=== PATIENT | male | born 1935 | race Caucasian/White ===

== ENCOUNTER 2021-02-02 00:12 | Inpatient (IN) | payer MEDICARE, OTHER ==
[~2021-02-02] VITALS: Ht 172.7 cm; Wt 81.2 kg
[2021-02-02] MEDS ORDERED: NITROGLYCERIN 0.4 MG/TAB BOTTLE ONE (00:20)
--- NOTE | 2021-02-02 00:20 | NUR ---
PT BIBRA FROM HOME C/O MD NEAL AT BEDSIDE, AO X 4, BREATHING IS RAPID AND EVEN, PT ATTACHED TO INTERNATIONAL SPECIALIST AND POX, SATURATION AT 97% ON RA, SKIN IS WARM, DRY, AND INTACT. CALL LIGHT WITHIN REACH. WILL CONTINUE TO MONITOR.
--- NOTE | 2021-02-02 00:24 | NUR ---
verbal order 0.4mg nitro SL
[2021-02-02] MEDS ORDERED: NITROGLYCERIN 0.4 MG/TAB BOTTLE SL ONE (00:30)
[2021-02-02 00:39] LABS: BASOPHILS # (AUTO) 0.1 K/uL (0.0-0.2); BASOPHILS % (AUTO) 0.7 % (0.0-2.0); EOSINOPHILS % (AUTO) 1.1 % (0.0-6.0); HEMATOCRIT 33 % (39-51); HEMOGLOBIN 10.9 g/dL (13.5-17.5); LYMPHOCYTES # (AUTO) 1.1 K/uL (0.8-4.8); LYMPHOCYTES % (AUTO) 12.4 % (20.0-44.0); MEAN CORPUSCULAR HGB CONC 33 g/dl (31.0-36.0); MEAN CORPUSCULAR VOLUME 87 fL (80-96); MONOCYTES # (AUTO) 1.1 K/uL (0.1-1.30); MONOCYTES % (AUTO) 12.4 % (2.0-12.0); NEUTROPHILS # (AUTO) 6.6 K/uL (1.8-8.9); NEUTROPHILS % (AUTO) 73.4 % (43.0-81.0); PLATELET COUNT (AUTO) 153 K/uL (150-450); RED BLOOD CELL COUNT(AUTO) 3.84 MIL/uL (4.5-6.0)
--- NOTE | 2021-02-02 00:41 | NUR ---
blood obtained and sent to lab
[2021-02-02 00:49] LABS: CALCIUM, SERUM 8.5 mg/dL (8.5-10.1); CARBON DIOXIDE 26 mmol/L (21-32); CHLORIDE 98 mmol/L (98-107); GLUCOSE 142 mg/dL (74-106); POTASSIUM 4.6 mmol/L (3.5-5.1); SODIUM SERUM 131 mmol/L (136-145); UREA NITROGEN, BLOOD 26 mg/dL (7-18)
[2021-02-02 01:01] LABS: ALANINE AMINOTRANSFERASE 22 U/L (12-78); ALBUMIN 3.8 g/dL (3.4-5.0); ALKALINE PHOSPHATASE 64 U/L (46-116); ASPARTATE AMINOTRANSFERASE 19 U/L (15-37); BILIRUBIN,DIRECT 0.3 mg/dL (0.0-0.2); BILIRUBIN,TOTAL 0.8 mg/dL (0.2-1.0); TOTAL PROTEIN, SERUM 7.4 g/dL (6.4-8.2)
--- NOTE | 2021-02-02 01:18 | NUR ---
CALLED LAB FOR COVID SWAB
--- NOTE | 2021-02-02 01:20 | NUR ---
PT PLACED ON 2L O2 FOR COMFORT DURING SLEEP
--- NOTE | 2021-02-02 01:25 | NUR ---
COVID SWAB SENT TO LAB
[2021-02-02] MEDS ORDERED: FUROSEMIDE 40 MG/4 ML VIAL ONE (01:26)
[2021-02-02] MEDS ORDERED: FUROSEMIDE 40 MG/4 ML VIAL IV ONE (01:30)
--- NOTE | 2021-02-02 01:45 | NUR ---
DAUGHTER, KATJA [phone], ,
[2021-02-02] MEDS ORDERED: ACETAMINOPHEN 325 MG TABLET PO PRN (02:00)
[2021-02-02] MEDS ORDERED: ZOLPIDEM TARTRATE 5 MG TABLET PO PRN (02:00)
[2021-02-02] MEDS ORDERED: MAGNESIUM HYDROXIDE 30 ML UDC PO PRN (02:00)
[2021-02-02] MEDS ORDERED: Z GUARD REMEDY 2 OZ OINT TP PRN (02:00)
[2021-02-02] MEDS ORDERED: MAG HYDROX/AL HYDROX/SIMETH 30 ML UDC PO PRN (02:00)
[2021-02-02] MEDS ORDERED: ONDANSETRON HCL/PF 4 MG/2 ML VIAL IVP PRN (02:00)
--- NOTE | 2021-02-02 02:19 | NUR ---
F/U WITH LAB ABOUT COVID RESULT, RUNNING NOW
--- NOTE | 2021-02-02 03:11 | NUR ---
GAVE REPORT TO JEAN HSIEH FOR NICOLE
--- NOTE | 2021-02-02 03:45 | NUR ---
TELE/RN OPENING NOTE RECEIVED REPORT FROM BOTTOM WHEELER JAVIER. PATIENT ARRIVED TO UNIT VIA GURNEY AND 2 STAFF MEMBERS. PATIENT IS BEING ADMITTED WITH DX OF CHF EXACERBATION. PATIENT IS ALERT AND ORIENTED X 4. PRIMARILY NEPALESE SPEAKING BUT UNDERSTANDS/SPEAKS SOME TURKISH. CONTINUES ON 2L O2 VIA NC WITH NO S/SX OF RESPIRATORY DISTRESS NOTED. PATIENT DENIES PAIN AT THIS TIME. IV ACCESS TO LEFT FOREARM #20G INTACT, PATENT AND SALINE LOCKED. PATIENTS WEIGHT ON ADMISSION IS 179LBS. VS ON ADMISSION: BP 146/84 HR 67 RR 20 T 98.4 O2 SAT 97% ON 2L O2 VIA NC. SKIN CHECK PERFORMED WITH BRUISING NOTED TO RIGHT ANKLE. PICTURES TAKEN AND PLACED IN CHART. PATIENT NOTED TO HAVE PITTING EDEMA +2 TO RIGHT FOOT. TELE MONITOR CURRENTLY READING V-PACING HR 68. PATIENT ORIENTED TO ROOM, UNIT AND CALL LIGHT. BED ALARM ON. CALL LIGHT WITHIN REACH. ASPIRATION, FALL AND SAFETY PRECAUTIONS MAINTAINED. WILL CONTINUE TO MONITOR.
[2021-02-02 04:17] VITALS: BP 146/84
--- NOTE | 2021-02-02 06:10 | NUR ---
TELE/RN CLOSING NOTE PATIENT CURRENTLY SLEEPING IN BED. ALERT AND ORIENTED X 4. ABLE TO MAKE NEEDS KNOWN. DENIES PAIN AT THIS TIME. CONTINUES ON 2L O2 VIA NC WITH NO S/SX OF RESPIRATORY DISTRESS NOTED. IV ACCESS TO LEFT FOREARM #20G INTACT, PATENT AND SALINE LOCKED. WEIGHT THIS AM IS 179. CALL LIGHT WITHIN REACH. ASPIRATION, FALL AND SAFETY PRECAUTIONS MAINTAINED. WILL ENDORSE PLAN OF CARE TO ONCOMING SHIFT.
--- NOTE | 2021-02-02 07:40 | NUR ---
RN OPENING NOTE PT AWAKE IN BED RESTING. ON 2L NC WITH NO RESPIRATORY DISTRESS PRESENT. A/O X4 AND UNDERSTANDS VIETNAMESE. ON CATALYST RECOVERY OPERATOR. NO EDEMA PRESENT. AMBULATORY WITH STANDBY ASSIST. BATHROOM PRIVILEGES AND URINAL AT BEDSIDE. R ANKLE BRUISING PRESENT AND WOUND CARE CONSULT ORDERED. IV PRESENT ON L FA 20G AND SALINE LOCKED. LABS AND ORDERS REVIEWED. SAFETY MEASURES IN PLACE. SIDE RAILS RAISED. BED LOWERED. CALL LIGHT WITHIN REACH. WILL CONTINUE TO MONITOR.
[2021-02-02] MEDS ORDERED: DOCU250C14 PO (07:54)
[2021-02-02] MEDS ORDERED: AMIO200T5 PO (07:54)
[2021-02-02] MEDS ORDERED: CARV12.52 PO (07:54)
[2021-02-02] MEDS ORDERED: APIX5TAB PO (07:54)
[2021-02-02] MEDS ORDERED: SPIR25TA6 PO (07:54)
[2021-02-02] MEDS ORDERED: SIMV-46 PO (07:54)
[2021-02-02] MEDS ORDERED: TOLT4CAP14 PO (07:54)
[2021-02-02 08:00] VITALS: BP 141/78
[2021-02-02] MEDS: PANTOPRAZOLE 40 MG TABLET.DR PO SCH (08:10)
[2021-02-02] MEDS ORDERED: TAMS-12 PO (08:20)
[2021-02-02] MEDS ORDERED: ALBU18HF2 INH (08:20)
[2021-02-02] MEDS ORDERED: UMEC1BLS INH (08:20)
[2021-02-02] MEDS ORDERED: ALBUTEROL FS 2.5 MG/3 ML VIAL.NEB INH PRN (09:00)
[2021-02-02] MEDS ORDERED: ENOXAPARIN SODIUM 40 MG/0.4 ML DISP.SYRIN SQ SCH (09:00)
[2021-02-02] MEDS ORDERED: FUROSEMIDE 20 MG/2 ML VIAL IV SCH (09:00)
[2021-02-02] MEDS: TOLTERODINE 2 MG CAP.SR PO SCH (09:21)
[2021-02-02] MEDS: SPIRONOLACTONE 25 MG TABLET PO SCH (09:21)
[2021-02-02] MEDS: DOCUSATE SODIUM 250 MG CAPSULE PO SCH ×2 (09:21→16:38)
[2021-02-02] MEDS: CARVEDILOL 12.5 MG TABLET PO SCH ×2 (09:22→16:49)
[2021-02-02] MEDS: AMIODARONE HCL 200 MG TABLET PO SCH (09:22)
[2021-02-02] MEDS: FUROSEMIDE 40 MG/4 ML VIAL IV SCH ×3 (09:24→16:38)
[2021-02-02] MEDS: FLUTICASONE/VILANTEROL 1 EACH BLST.W.DEV IH SCH (10:24)
[2021-02-02 11:21] VITALS: BP 136/64
[2021-02-02 16:00] VITALS: BP 123/72
[2021-02-02] MEDS: IPRATROPIUM NEB FS 0.5 MG/2.5 ML AMPUL.NEB NEB SCH ×2 (16:18→19:54)
--- NOTE | 2021-02-02 16:20 | NUR ---
RT TX GIVEN LATE. RT UNAWARE OF TX. PT AWAKE AND ALERT. NO SOB NOTED.
[2021-02-02] MEDS: APIXABAN 5 MG TABLET PO SCH (16:40)
--- NOTE | 2021-02-02 19:05 | NUR ---
RN CLOSING NOTE PT AWAKE IN BED RESTING. ON 2L NC WITH NO RESPIRATORY DISTRESS PRESENT. A/O X4 AND UNDERSTANDS LATVIAN. ON DISTRIBUTION COLLECTION OPERATOR. NO EDEMA PRESENT. AMBULATORY WITH STANDBY ASSIST. BATHROOM PRIVILEGES AND URINAL AT BEDSIDE. R ANKLE BRUISING PRESENT AND WOUND CARE CONSULT ORDERED. IV PRESENT ON L FA 20G AND SALINE LOCKED. LABS AND ORDERS REVIEWED. SAFETY MEASURES IN PLACE. ROUTINE MEDS GIVEN. SIDE RAILS RAISED. BED LOWERED. CALL LIGHT WITHIN REACH. REPORT TO BE GIVEN TO NIGHT NURSE FOR NICOLE.
--- NOTE | 2021-02-02 19:30 | NUR ---
MS/RN OPENING NOTE RECEIVED PATIENT SLEEPING IN BED. ALERT AND ORIENTED X 4. PRIMARILY LITHUANIAN SPEAKING BUT UNDERSTANDS SOME [place] IS[place]ER. DENIES PAIN AT THIS TIME. CONTINUES ON O2 2L VIA NC WITH NO S/SX OF RESPIRATORY DISTRESS NOTED. IV ACCESS TO LEFT FOREARM #20G INTACT, PATENT AND SALINE LOCKED. CONTINUES ON CARDIAC DIET WITH NO S/SX OF ASPIRATION NOTED. CALL LIGHT WITHIN REACH. ASPIRATION, FALL AND SAFETY PRECAUTIONS MAINTAINED. WILL CONTINUE TO MONITOR.
[2021-02-02 20:00] VITALS: BP 130/70
[2021-02-02] MEDS ORDERED: TAMSULOSIN 0.4 MG CAP.SR.24H PO SCH (22:00)
[2021-02-02] MEDS ORDERED: SIMVASTATIN 20 MG TABLET PO SCH (22:00)
[2021-02-03] MEDS: IPRATROPIUM NEB FS 0.5 MG/2.5 ML AMPUL.NEB NEB SCH ×3 (01:45→13:58)
[2021-02-03 06:12] LABS: BASOPHILS % (AUTO) 0.2 % (0.0-2.0); EOSINOPHILS % (AUTO) 1.2 % (0.0-6.0); HEMATOCRIT 33 % (39-51); HEMOGLOBIN 10.8 g/dL (13.5-17.5); LYMPHOCYTES # (AUTO) 1.1 K/uL (0.8-4.8); LYMPHOCYTES % (AUTO) 13.7 % (20.0-44.0); MEAN CORPUSCULAR HGB CONC 33 g/dl (31.0-36.0); MEAN CORPUSCULAR VOLUME 88 fL (80-96); MONOCYTES # (AUTO) 1.2 K/uL (0.1-1.30); MONOCYTES % (AUTO) 14.8 % (2.0-12.0); NEUTROPHILS # (AUTO) 5.6 K/uL (1.8-8.9); NEUTROPHILS % (AUTO) 70.1 % (43.0-81.0); PLATELET COUNT (AUTO) 159 K/uL (150-450); RED BLOOD CELL COUNT(AUTO) 3.76 MIL/uL (4.5-6.0); WHITE BLOOD COUNT (AUTO) 8.1 K/uL (4.3-11.0)
--- NOTE | 2021-02-03 06:20 | NUR ---
MS/RN CLOSING NOTE PATIENT CURRENTLY SLEEPING IN BED. ALERT AND ORIENTED X 4. PRIMARILY LAO SPEAKING BUT UNDERSTANDS SOME URUGUAYAN. DENIES PAIN AT THIS TIME. CONTINUES ON O2 2L VIA NC WITH NO S/SX OF RESPIRATORY DISTRESS NOTED. IV ACCESS TO LEFT FOREARM #20G INTACT, PATENT AND SALINE LOCKED. CONTINUES ON CARDIAC DIET WITH NO S/SX OF ASPIRATION NOTED. CALL LIGHT WITHIN REACH. ASPIRATION, FALL AND SAFETY PRECAUTIONS MAINTAINED. WILL ENDORSE PLAN OF CARE TO ONCOMING SHIFT.
[2021-02-03 06:39] LABS: ALANINE AMINOTRANSFERASE 19 U/L (12-78); ALBUMIN 3.7 g/dL (3.4-5.0); ALKALINE PHOSPHATASE 58 U/L (46-116); ASPARTATE AMINOTRANSFERASE 11 U/L (15-37); BILIRUBIN,TOTAL 0.9 mg/dL (0.2-1.0); CALCIUM, SERUM 8.9 mg/dL (8.5-10.1); CARBON DIOXIDE 32 mmol/L (21-32); CHLORIDE 99 mmol/L (98-107); CREATININE 1.2 mg/dL (0.6-1.3); GLUCOSE 103 mg/dL (74-106); MAGNESIUM 2.2 mg/dL (1.8-2.4); PHOSPHORUS 3.2 mg/dL (2.5-4.9); POTASSIUM 4.1 mmol/L (3.5-5.1); SODIUM SERUM 139 mmol/L (136-145); TOTAL PROTEIN, SERUM 7.5 g/dL (6.4-8.2); UREA NITROGEN, BLOOD 27 mg/dL (7-18)
[2021-02-03 06:46] LABS: CHOLESTEROL 195 mg/dL (<200); HDL CHOLESTEROL 51 mg/dL (40-60); TRIGLYCERIDES 52 mg/dL (30-150)
[2021-02-03 07:26] LABS: LDL 126 mg/dL (0-99)
[2021-02-03 08:00] VITALS: BP 119/57
--- NOTE | 2021-02-03 08:08 | NUR ---
MS/RN OPENING NOTE RECEIVED PATIENT SITTING ON THE SIDE OF THE BED. ALERT AND ORIENTED X 4. PRIMARILY DOMINICAN SPEAKING BUT UNDERSTANDS SOME INDIAN. ON O2 2L VIA NC WITH NO S/SX OF RESPIRATORY DISTRESS NOTED. IV ACCESS TO LEFT FOREARM #20G INTACT, PATENT AND SALINE LOCKED. CALL LIGHT WITHIN REACH. ASPIRATION, FALL AND SAFETY PRECAUTIONS MAINTAINED. WILL CONTINUE TO MONITOR PATIENT.
[2021-02-03 08:27] LABS: ABG BASE EXCESS 3.2 mmol/L; ABG OXYGEN SATURATION 93.8 % (92.0-98.5); ABG PCO2 42.1 mmHg (35.0-45.0); ABG PH 7.437 (7.350-7.450); ABG PO2 67.4 mmHg (75.0-100.0); AaDO2 31.9 mmHg; COHb 0.4 % (0.5-1.5); MetHb 0.2 % (0.0-1.5); O2Hb 93.2 % (94.0-97.0); SITE, ABG Right Radial; VENT MODE, BG ROOM AIR
[2021-02-03] MEDS: PANTOPRAZOLE 40 MG TABLET.DR PO SCH (08:53)
[2021-02-03] MEDS ORDERED: FUROSEMIDE 40 MG TABLET PO SCH (09:30)
[2021-02-03] MEDS: TOLTERODINE 2 MG CAP.SR PO SCH (10:13)
[2021-02-03 10:14] VITALS: BP 119/60
[2021-02-03] MEDS: DOCUSATE SODIUM 250 MG CAPSULE PO SCH (10:14)
[2021-02-03] MEDS: SPIRONOLACTONE 25 MG TABLET PO SCH (10:14)
[2021-02-03] MEDS: CARVEDILOL 12.5 MG TABLET PO SCH (10:14)
[2021-02-03] MEDS: AMIODARONE HCL 200 MG TABLET PO SCH (10:14)
[2021-02-03] MEDS: FLUTICASONE/VILANTEROL 1 EACH BLST.W.DEV IH SCH (10:15)
[2021-02-03] MEDS: APIXABAN 5 MG TABLET PO SCH (10:16)
[2021-02-03] MEDS ORDERED: FURO40TA5 PO (11:26)
--- NOTE | 2021-02-03 14:00 | NUR ---
MS/BOTTOM LOADER NOTES PATIENT IS MEDICALLY STABLE AND MD ORDERED DISCHARGE TO HOME. PATIENT IS ALERT AND ORIENTED X4, ABLE TO MAKE NEEDS KNOWN. SATURATING WELL ON ROOM AIR AT 97%. SERBIAN SPEAKING BUT CAN UNDERSTAND [place]. DISCHARGE INSTRUCTIONS GIVEN TO THE PATIENT AND ABLE TO VERBALIZED UNDERSTANDING. ALL BELONGINGS ACCOUNTED FOR. IV ACCESS TAKEN OUT BEFORE DISCHARGE. DAUGHTER CAM AND EMAIL DEPLOYMENT SPECIALIST PATIENT VIA PRIVATE CAR.
== END 2021-02-03 14:30 | disposition home health service (06) | DRG 291 ==
LOC: ER 00:15 → TELE 03:10 → MED 14:05
PROVIDERS: ADMIT Nurse Practitioner Acute Care; ATTEND Hospitalist
DX: I11.0 Hypertensive heart disease with heart failure (principal); I50.31 Acute diastolic (congestive) heart failure; J96.02 Acute respiratory failure with hypercapnia; J96.01 Acute respiratory failure with hypoxia; J44.1 Chronic obstructive pulmonary disease with (acute) exacerbation; E87.1 Hypo-osmolality and hyponatremia; N17.9 Acute kidney failure, unspecified; I48.91 Unspecified atrial fibrillation; I25.10 Atherosclerotic heart disease of native coronary artery without angina pectoris; Z20.822 Contact with and (suspected) exposure to COVID-19; Z95.0 Presence of cardiac pacemaker; Z91.041 Radiographic dye allergy status; Z87.891 Personal history of nicotine dependence; D64.9 Anemia, unspecified; S90.01XA Contusion of right ankle, initial encounter; X58.XXXA Exposure to other specified factors, initial encounter; Y92.9 Unspecified place or not applicable
CPT/HCPCS: 36415; 36600; 71045-TC; 73610-TC; 80048-TC; 80053-TC; 80061-TC; 80076-TC; 82803-TC; 83735-TC; 83880; 84100-TC; 84443-TC; 84484-TC; 85025-TC; 87081-TC; 93307-TC; 94799-TC; 97116-TC; 97530-TC; C9803; G0378; J1650; J1940